=== PATIENT | female | born 1965 | race African-American/Black ===

== ENCOUNTER 2019-10-25 18:13 | Emergency (ER) | payer OTHER ==
[~2019-10-25] VITALS: Ht 175.3 cm; Wt 129.7 kg
[2019-10-25 18:19] VITALS: Ht 175.3 cm; Wt 129.7 kg
[2019-10-25 20:43] VITALS: BP 129/70
== END 2019-10-25 20:43 | disposition home or self-care (01) ==
LOC: ED 18:13
DX: R07.89 Other chest pain (principal); I10 Essential (primary) hypertension; E11.9 Type 2 diabetes mellitus without complications; E78.00 Pure hypercholesterolemia, unspecified; Z88.8 Allergy status to other drugs, medicaments and biological substances